=== PATIENT | male | born 1955 | race Caucasian/White ===

== ENCOUNTER 2025-05-01 09:44 | Inpatient (IN) | payer MEDICARE, OTHER ==
[2025-04-23 12:09] LABS: BASOPHILS % 0.5 % (0.0-1.0); EOSINOPHILS % 1.0 % (0.0-6.0); LYMPHOCYTES % 19.0 % (18.0-39.1); MONOCYTES % 8.3 % (4.4-11.3); NEUTROPHILS % 71.0 % (38.7-80.0); RED CELL DISTRIBUTION WIDTH 15.0 % (11.7-14.4)
[2025-05-01] VITALS (8 sets, daily range): BP systolic 140–145; BP diastolic 67–81; PULSE 66–99; RESP 16–21; TEMP 97.4–98.8; O2SAT 98–100
[2025-05-01] MEDS: ASPIRIN 81 MG ENTERIC COATED PO SCH (09:00)
[~2025-05-01 09:44] MED LIST: CELEBREX200 MG PO; DICLOFENAC35 MG PO; DOCUSATE SODIUM 100 MG CAP PO PRN; FLOMAX0.4 MG PO; GABAPENTIN300 MG PO; HYDROCODON-ACE1 EAC9 PO; ONDANSETRON HCL INJ 2MG/ML 2ML 2 MG/ML VIAL IV PRN; OXYBUTYNIN CHLOR5 MG PO; PHENTERMINE H37.5 M1 PO
[2025-05-01] MEDS ORDERED: FENTANYL CITRATE/PF 100MCG/2 ML INJ ONE (10:54)
[2025-05-01] MEDS ORDERED: ROCURONIUM BROMIDE 1 ML IV ONE (10:54)
[2025-05-01] MEDS ORDERED: SUCCINYLCHOLINE CHLORIDE 20 MG/ML 10ML VIAL ONE (10:55)
[2025-05-01] MEDS ORDERED: SEVOFLURANE INHAL SOLN 250 ML PEN BTL ONE (10:55)
[2025-05-01] MEDS ORDERED: PROPOFOL IV EMULSION 10 MG/ML 20 ML VIAL ONE (10:55)
[2025-05-01] MEDS ORDERED: LIDOCAINE HCL 2% LOCAL INJ 5 ML SDV VIAL INJ ONE (10:57)
[2025-05-01] MEDS ORDERED: ACETAMINOPHEN 1000 MG/100 ML 100 ML IV ONE (12:10)
[2025-05-01] MEDS: CEFAZOLIN SODIUM 2 GM ONE (12:13)
[2025-05-01] MEDS: LACTATED RINGER'S 1,000 ML ONE (12:14)
[2025-05-01] MEDS ORDERED: ONDANSETRON HCL INJ 2MG/ML 2ML 2 MG/ML VIAL ONE (12:19)
[2025-05-01] MEDS ORDERED: DEXAMETHASONE SOD PHOS INJ 4 MG/ML SDV ONE (12:19)
[2025-05-01] MEDS ORDERED: SUGAMMADEX SODIUM 200 MG/2 ML VIAL IV ONE (13:16)
[2025-05-01] MEDS ORDERED: HYDROMORPHONE 1MG/1ML INJ ONE (14:02)
[2025-05-01] MEDS: FENTANYL CITRATE/PF 100MCG/2 ML INJ ONE (14:05)
[2025-05-01] MEDS: HYDROCODONE/APAP 7.5MG-325MG 1 EA TAB ONE (14:30)
[2025-05-01] MEDS: HYDROCODONE/APAP 7.5MG-325MG 1 EA TAB PO PRN (15:30)
[2025-05-01] MEDS ORDERED: ACETAMINOPHEN 325 MG TAB PO PRN (16:15)
[2025-05-01] MEDS ORDERED: ALBUTEROL/IPRATROPIUM 3 ML NEB NEB PRN (16:15)
[2025-05-01] MEDS ORDERED: LIDOCAINE 4% PATCH TP PRN (16:15)
[2025-05-01] MEDS ORDERED: DEXTROSE 50% SYRINGE 50 ML IV PRN (16:15)
[2025-05-01] MEDS ORDERED: SIMETHICONE 80 MG CHEW PO PRN (16:15)
[2025-05-01] MEDS ORDERED: BENZONATATE 100 MG CAP PO PRN (16:15)
[2025-05-01] MEDS ORDERED: POTASSIUM CHLORIDE 20 MEQ TAB CR PO PRN (16:15)
[2025-05-01] MEDS ORDERED: DIPHENHYDRAMINE HCL 25 MG CAP PO PRN (16:15)
[2025-05-01] MEDS ORDERED: DOCUSATE SODIUM 100 MG CAP PO PRN (16:15)
[2025-05-01] MEDS ORDERED: HYDRALAZINE HCL 20 MG/ML VIAL IV PRN (16:15)
[2025-05-01] MEDS: ROPIVACAINE/EPI/CLONIDINE/KET 50 ML SYRINGE INJ ONE (16:44)
[2025-05-01] MEDS: ENOXAPARIN SOD INJ 40 MG/0.4 ML SYR SC SCH (20:24)
[2025-05-01] MEDS ORDERED: MELATONIN 5 MG TABLET PO PRN (21:00)
[2025-05-02 00:08] VITALS: BP 130/64; PULSE 88; RESP 20; TEMP 98.2; O2SAT 97
[2025-05-02 03:25] VITALS: BP 141/71; PULSE 86; RESP 17; TEMP 98; O2SAT 96
[2025-05-02 05:20] LABS: BASOPHILS % 0.2 % (0.0-1.0); EOSINOPHILS % 0.1 % (0.0-6.0); LYMPHOCYTES % 10.9 % (18.0-39.1); MONOCYTES % 9.6 % (4.4-11.3); NEUTROPHILS % 78.9 % (38.7-80.0); RED CELL DISTRIBUTION WIDTH 14.6 % (11.7-14.4)
[2025-05-02 06:05] LABS: EST GLOMERULAR FILTRATION RATE 79.0 ML/MIN (>=60)
[2025-05-02 07:39] VITALS: PULSE 72; RESP 18; O2SAT 98
[2025-05-02] MEDS: PANTOPRAZOLE SOD 40 MG TABEC PO SCH (07:58)
[2025-05-02] MEDS: TAMSULOSIN HCL 0.4 MG CAP PO SCH (07:58)
[2025-05-02] MEDS: OXYBUTYNIN CHLORIDE 5 MG TAB PO SCH (07:58)
[2025-05-02 08:00] VITALS: BP 134/74; PULSE 101; RESP 18; TEMP 99.4; O2SAT 99
[2025-05-02] MEDS: GABAPENTIN 300 MG CAP PO SCH (11:59)
[2025-05-02 12:00] VITALS: BP 130/59; PULSE 91; RESP 17; TEMP 99.1; O2SAT 97
[2025-05-02] MEDS ORDERED: ASPIRIN81 MG PO (12:05)
[2025-05-02] MEDS ORDERED: BUPROPION XL150 MG PO (12:05)
[2025-05-02] MEDS ORDERED: HYDROCODONE/APAP 10MG-325MG TAB PO PRN (12:45)
[2025-05-02 13:29] VITALS: PULSE 75; RESP 18; O2SAT 97
[2025-05-02] MEDS: HYDROCODONE/APAP 10MG-325MG TAB PO PRN (14:23)
[2025-05-02] MEDS ORDERED: GABAPENTIN 300 MG CAP PO SCH (15:00)
[2025-05-03] MEDS ORDERED: ASPIRIN 81 MG CHEW TAB PO SCH (09:00)
[2025-05-03] MEDS ORDERED: BUPROPION HCL 150 MG TABCR PO SCH (09:00)
[2025-05-03] MEDS ORDERED: CELECOXIB 200 MG CAP PO SCH (09:00)
== END 2025-05-02 14:35 | DRG 470 ==
LOC: OR 09:44 → PACU V 09:45 → MED/SURG 15:10
PROVIDERS: ADMIT Orthopaedic Surgery Adult Reconstructive Orthopaedic Surgery; ATTEND Orthopaedic Surgery Adult Reconstructive Orthopaedic Surgery
PROC: 0SRB0JA Replacement of Left Hip Joint with Synthetic Substitute, Uncemented, Open Approach (ICD-10-PCS; principal; 2025-05-01 11:38)
DX: M16.12 Unilateral primary osteoarthritis, left hip (principal); Z68.42 Body mass index [BMI] 45.0-49.9, adult; G89.29 Other chronic pain; Z86.718 Personal history of other venous thrombosis and embolism; F17.200 Nicotine dependence, unspecified, uncomplicated; E66.01 Morbid (severe) obesity due to excess calories; I73.9 Peripheral vascular disease, unspecified; N40.1 Benign prostatic hyperplasia with lower urinary tract symptoms; R35.1 Nocturia; M50.30 Other cervical disc degeneration, unspecified cervical region; M51.369 Other intervertebral disc degeneration, lumbar region without mention of lumbar back pain or lower extremity pain; G47.33 Obstructive sleep apnea (adult) (pediatric); J30.1 Allergic rhinitis due to pollen; Z96.653 Presence of artificial knee joint, bilateral; Z85.828 Personal history of other malignant neoplasm of skin; Z98.84 Bariatric surgery status; Z79.899 Other long term (current) drug therapy
CPT/HCPCS: 36415; 71046; 72170; 80048; 85025; 86850; 86900; 93005; 94799; C1713; C1776; J0330; J0690; J1100; J1171; J1650; J2003; J2405; J2470